=== PATIENT | female | born 1990 | race Caucasian/White ===

== ENCOUNTER 2024-01-03 12:30 | Emergency (ER) | payer BC, SELFPAY ==
--- NOTE | ~2024-01-03 | CT_ITS ---
EXAMINATION: CT BRAIN W/O DATE: 01/03/2024 14:34 INDICATION: Questionable new onset of seizure TECHNIQUE: Computed tomography (CT) of the head was performed without intravenous contrast. The dose- length product was 681.00 mGy-cm. Automated exposure control and iterative reconstruction technique w ere employed. COMPARISON: No prior studies for comparison. FINDINGS: Normal brain parenchymal volume for age. Normal powell-white differentiation. No acute intrac ranial hemorrhage, infarction, mass or mass effect. No ventriculomegaly or midline shift. Midline sagittal images demonstrate a normal corpus callosum, c raniovertebral junction and sella turcica. Basilar cisterns are patent. Paranasal sinuses and mastoids are pneumatized. No depressed skull fractures. IMPRESSION: 1. No acute intracranial abnormality. Reviewed, dictated and finalized at location B.
[2024-01-03 12:45] VITALS: BP 140/84; PULSE 87; RESP 16; TEMP 37; O2SAT 100
--- NOTE | 2024-01-03 13:38 | ECG_ITS ---
[facility] [address] Test Date: 2024-01-03 Pat Name: Sapphire Sims Department: Room: Gender: F Perforator: : 1990 Requested By: France Soriano Order Number: [id number] Perla MD: Steven Rasmussen M.D. Measurements Intervals [place] Rate: 65 P: 43 NC: 147 QRS: 47 QRSD: 84 T: 28 QT: 336 QTc: 350 Interpretive Statements SINUS RHYTHM WITH SINUS ARRHYTHMIA No previous ECG available for comparison Electronically Signed On 01-03-2024 14:28:26 CDT by Steven Rasmussen M.D.
--- NOTE | 2024-01-03 13:39 | ED.GENADULT ---
HPI - General Adult General Chief complaint: Fall Stated complaint: fall Time Seen by Provider: 01/03/24 13:37 Source: patient Mode of arrival: ambulatory Limitations: no limitations History of Present Illness HPI narrative: 33-year-old female who after concern for syncope versus seizure yesterday. Patient was on the toilet and just had a bowel movement when she had a warm painful sensation in her low abdomen like she might need to have a BM again and felt like she had might pass out. She put her head against the adjacent sink and then subsequently lost muscle tone and consciousness and woke up on the floor. She denies any diarrhea, needing to strain during the bowel movement, or bloody bowel movement. Denies any shortness of breath. No history of heart failure. Patient unsure how long she was unresponsive so believes it was less than 8 minutes given the timing of when her girlfriend had left the house versus return. She is concerned for possible seizure as her mom has a history of this of she reports that her mother's seizures are stress induced. Patient does report that she is recently going through a divorce which has been stressful. She believes she struck her head. She did have an episode of emesis afterwards and then felt nauseated but states the nausea resolved. Amenorrhea (since 2019) in the setting of Depo shots. no incontinence of bowel or bladder and denies any tongue trauma although she does state that she bit the inside bilateral cheeks the also does this at baseline in the setting of stress. When she awoke she was initially slightly confused, unclear postictal. No PMH anemia. Related Data Home Medications Medication Instructions Recorded Confirmed medroxyprogesterone 150 mg/mL 150 mg IM [id number] 09/15/21 intramuscular syringe (Depo-Provera) Allergies Allergy/AdvReac Type Severity Reaction Status Date / Time paroxetine Allergy Intermediate Confusion Verified 01/03/24 12:49 lavender (Lavandula Allergy Unknown Hives Verified 01/03/24 12:49 angustifolia) [facility] Past Medical History Medical History Chronic headaches Paralabral cyst of right shoulder Right shoulder pain Rotator cuff tear Family History Family History Unknown Hypertension Diabetes mellitus Heart failure Mother Seizure Social History Social History Social History: Currently going through a divorce (December 2023) Smoking status: Former smoker Smoking end date: 08/01/16 Alcohol intake: never Substance use: current Substance use type: marijuana Sexual Orientation (if Verbalized by the Patient): Lesbian, [place], or Homosexual Exam Narrative: GENERAL: Well-appearing, well-nourished, and in no acute distress. HEAD: Normocephalic, atraumatic. No periorbital ecchymosis. EYES: Non injected, non icteric ENT: Nares clear, no rhinorrhea or epistaxis. NECK: Supple. CHEST: Speaking in full sentences. No respiratory distress. HEART: Regular rate and rhythm. . ABDOMEN: Soft, nondistended. EXTREMITIES: Normal range of motion. No edema. SKIN: Warm, dry, no rash. NEURO: No focal deficits. Alert and oriented x3. No abnormal movements PSYCH: Normal mood and affect. Course Vital Signs Vital signs: Vital Signs Temperature 98.6 F 01/03/24 12:45 Pulse Rate 87 01/03/24 12:45 Respiratory Rate 16 01/03/24 12:45 Blood Pressure 140/84 01/03/24 12:45 Pulse Oximetry 100 01/03/24 12:45 Oxygen Delivery Room Air 01/03/24 12:45 Temperature 98.6 F 01/03/24 12:45 Pulse Rate 65 01/03/24 14:59 Respiratory Rate 16 01/03/24 12:45 Blood Pressure 136/73 01/03/24 14:59 Pulse Oximetry 100 01/03/24 12:45 Oxygen Delivery Room Air 01/03/24 12:45 Medical Decision Making MDM Narrative Medical decision
[2024-01-03 14:58] VITALS: BP 130/74; PULSE 75
[2024-01-03 14:59] VITALS: BP 126/68; BP 136/73; PULSE 61; PULSE 65
[2024-01-03 15:00] LABS: Basophils Absolute Auto 0.1 K/mm3 (0.0-0.1); Basophils Percent Auto 0.7 % (0.2-1.2); Eosinophils Absolute Auto 0.1 K/mm3 (0-0.3); Hematocrit 44.1 % (37.0-47.0); Hemoglobin 14.8 g/dL (12.0-15.0); Immature Granulocyte Absolute 0.02 K/mm3 (0.00-0.031); Immature Granulocyte Percent A 0.3 % (0-0.5); Lymphocytes Absolute Auto 2.03 K/mm3 (0.9-3.2); Lymphocytes Percent Auto 29.3 % (18.3-44.2); Mean Corpuscular HGB Conc 33.6 g/dl (32-36); Mean Corpuscular Hemoglobin 34.3 pg (26-34); Mean Corpuscular Volume 102.1 fl (80-100); Mean Platelet Volume 9.4 fl (7.4-10.4); Monocytes Absolute Auto 0.5 K/mm3 (0.1-0.6); Monocytes Percent Auto 6.5 % (2.6-8.5); Neutrophils Absolute Auto 4.3 K/mm3 (1.3-6.7); Neutrophils Percent Auto 62.2 % (45.5-73.1); Platelet Count Result 298 k/mm3 (150-375); Red Blood Count 4.32 M/mm3 (4.2-5.4); Red Cell Distribution Width 12.3 % (11.5-14.5); White Blood Count 6.9 K/mm3 (4.5-10.0)
[2024-01-03 15:10] LABS: Alanine Aminotransferase 13 U/L (6-35); Albumin Level 5.1 g/dL (3.5-5.1); Alkaline Phosphatase 54 U/L (38-126); Anion Gap 8 mmol/L (4-12); Aspartate Amino Transferase 19 U/L (14-36); Bilirubin,Total 0.5 mg/dL (0.2-1.3); Blood Urea Nitrogen 10 mg/dL (7-17); Calcium 9.3 mg/dL (8.4-10.2); Carbon Dioxide 25 mmol/L (22-30); Chloride 108 mmol/L (98-107); Estimated CRCL calculation 100 ml/min; Estimated Glomerular Filt Rate > 60; Glucose 101 mg/dL (65-110); Potassium 4.1 mmol/L (3.4-5.0); Sodium 141 mmol/L (137-145)
[2024-01-03 15:15] LABS: Appearance Urine Cloudy (Clear); Bacteria Urine 4+ /hpf; Bilirubin Urine Negative (Negative); Blood Urine Negative (Negative); Color Urine Yellow (Yellow); Glucose Urine UA Negative (Negative); Ketones Urine Negative (Negative); Leukocyte Esterase Ur 1+ LEU/UL (Negative); Need Manual Microscopic Reviewed; Nitrate Urine Negative (Negative); Non Pathogenic Casts 0-2; Protein Urine Negative (Negative); Squamous Epithelial Cell Urine Moderate /hpf (Few)
[2024-01-03 15:16] LABS: Add Urine Microscopic? YES
[2024-01-03 15:37] LABS: Amphetamine Screen Urine Negative (Negative); Barbiturate Screen Urine Negative (Negative); Benzodiazepines Screen Urine Negative (Negative); Cannabinoid Screen Urine Positive (Negative); Cocaine Screen Urine Negative (Negative); Methadone Screen Urine Negative (Negative); Opiate Screen Urine Negative (Negative); Phencyclidine Screen Urine Negative (Negative)
[2024-01-03] MEDS: SULFAMETHOXAZOLE/TRIMETHOPRIM 800/160 MG DS TABLET 1 TAB PO (15:52)
== END 2024-01-03 15:55 | disposition home or self-care (01) ==
PROVIDERS: Emergency Provider Student in an Organized Health Care Education/Training Program; PCP Physician Assistant
DX: N39.0 Urinary tract infection, site not specified (principal); R55 Syncope and collapse; F12.90 Cannabis use, unspecified, uncomplicated; Z87.891 Personal history of nicotine dependence
CPT/HCPCS: 36415; 70450; 80053; 80307; 81001; 81025; 85025; 87086; 93005; 99284; A9270

== ENCOUNTER 2025-01-23 23:57 | Emergency (ER) | payer SELFPAY ==
--- NOTE | ~2025-01-23 | CT_ITS ---
CT Facial Bones Clinical Indication: Trauma Technique: Contiguous axial scans were obtained through the facial bones followed by coronal and sagi ttal reconstructions. Dose reduction technique was used on this scan by utilizing automated exposure control and iterative reconstruction technique. The dose-length product (DLP) was 410.28 mGy-cm. Findings: No fractures are identified. The visualized paranasal sinuses are clear. Intraorbital soft tissues appear normal. Impression: No fracture identified. Reviewed, dictated and finalized at location . Impression: No fracture identified.
--- NOTE | ~2025-01-23 | CT_ITS ---
Non-contrast Head CT History: Trauma COMPARISON: 01/03/2024 Technique: Axial non-contrast imaging of the brain was performed. Dose reduction technique was used on this scan by utilizing automated exposure control and iterative reconstruction technique. The dose -length product (DLP) was 605.33 mGy-cm. Findings: There is no evidence of intracranial hemorrhage, mass lesion, or acute infarct. Brain par enchyma appears normal. The ventricles and subarachnoid spaces are normal in size. The calvarium ap pears normal. The visualized paranasal sinuses and mastoid air cells are clear. Impression: No significant abnormality seen. Reviewed, dictated and finalized at [facility]. Impression: No significant abnormality seen.
--- NOTE | ~2025-01-23 | XR_ITS ---
Portable chest x-ray Comparison: None Clinical History: Syncope Findings: Lungs are clear, without focal consolidation or pleural effusion. Cardiomediastinal silho uette is unremarkable. Bones and soft tissues are unremarkable. Impression: Normal chest. Reviewed, dictated and finalized at location M. Impression: Normal chest.
[2025-01-24] VITALS (7 sets, daily range): BP systolic 103–134; BP diastolic 51–79; PULSE 59–80; RESP 12–20; TEMP 36.7; O2SAT 98–100
--- NOTE | 2025-01-24 00:52 | ECG_ITS ---
Test Date: 2025-01-24 01:07:54 Measurements Intervals [place] Rate: 58 P: -1 WA: 159 QRS: 47 QRSD: 84 T: 35 QT: 366 QTc: 360 Interpretive Statements SINUS BRADYCARDIA CONSIDER RIGHT VENTRICULAR CONDUCTION DELAY BORDERLINE ECG Compared to ECG 01/03/2024 13:48:24 HEART RATE HAS DECREASED Electronically Signed On 01-24-2025 06:58:20 CDT by Xavi Jones D.O.
--- NOTE | 2025-01-24 01:07 | ED_ITS ---
HPI - General Adult General Chief complaint: Syncope Stated complaint: syncope Time Seen by Provider: 01/24/25 00:51 History of Present Illness HPI narrative: 34-year-old female presenting to the emergency department for evaluation for vasovagal episode while taking a shower. Patient states she was in pain because she was trying to remove her Tegaderm from a recent tattoo and she felt lightheaded. Patient said on the edge of the tub but ultimately did lose consciousness and fell and landed between the toe of and the cabinet. Did strike her face on the cabinet. Patient was able to call a friend for help and patient was brought to the emergency department for evaluation. Related Data Home Medications ?Medication ?Instructions ?Recorded ?Confirmed ?Last Taken ?Type medroxyprogesterone 150 mg/mL 150 mg IM [id number] 09/15/21 Unknown History intramuscular syringe (Depo-Provera) Allergies Allergy/AdvReac Type Severity Reaction Status Date / Time paroxetine Allergy Intermediate Confusion Verified 01/24/25 00:10 lavender (Lavandula Allergy Unknown Hives Verified 01/24/25 00:10 angustifolia) Review of Systems 2 Review of Systems: All systems reviewed & are unremarkable except as noted in HPI and below PMFSH Past Medical History Medical History Chronic headaches Paralabral cyst of right shoulder Right shoulder pain Rotator cuff tear Family History Family History Unknown Hypertension Diabetes mellitus Heart failure Mother Seizure Social History Social History Social History: Currently going through a divorce (December 2023) Smoking status: Former smoker Smoking end date: 08/01/16 Alcohol intake: never Substance use: current Substance use type: marijuana Sexual Orientation (if Verbalized by the Patient): Lesbian, [place], or Homosexual Exam 2 Narrative: APPEARANCE: Well appearing, no pain, no distress, well-nourished. HEAD: normocephalic, right-sided facial contusion. EYES: PERRLA/EOMI, conjunctivae clear. NOSE: Normal no drainage EARS:TMS clear with good light reflex. THROAT: Pharynx clear, no exudate. NECK: Supple. No adenopathy, no masses. RESPIRATORY: Airway patent, respirations nonlabored. Clear to auscultation bilaterally, no rales, rhonchi, wheezing. CARDIOVASCULAR: Regular rate and rhythm without murmurs rubs or gallops. ABDOMINAL: Soft, nontender, nondistended, normal bowel sounds MUSCULOSKELETAL: Moves all extremities. Strength/ROM intact, No edema, No calf tenderness. NEURO: Alert. Cranial nerves II through XII intact. Good gait. Good coordination SKIN: Warm, dry. Normal Color Course Vital Signs Vital signs: Vital Signs Temperature 98.0 F 01/24/25 00:07 Pulse Rate 68 01/24/25 00:07 Respiratory Rate 18 01/24/25 00:07 Blood Pressure 113/66 01/24/25 00:07 Pulse Oximetry 100 01/24/25 00:07 Oxygen Delivery Room Air 01/24/25 00:07 Temperature 98.0 F 01/24/25 00:07 Pulse Rate 59 L 01/24/25 04:02 Respiratory Rate 16 01/24/25 04:02 Blood Pressure 103/69 01/24/25 04:02 Pulse Oximetry 100 01/24/25 04:02 Oxygen Delivery Room Air 01/24/25 00:07 Medical Decision Making MDM Narrative Medical decision making narrative: 34-year-old female present to the emergency department for evaluation for vasovagal syncope. Patient is currently afebrile but does have a leukocytosis of 14.9 hemoglobin of 13.0. INR is 0.9 with no significant acute abnormalities on her CMP. Patient states she was in a hot shower and was and pain as she was removing her Tegaderm off of her tattoo. Chest x-ray shows no acute cardiopulmonary abnormality head and facial CT were negative. Patient had negative orthostatic vitals the emergency department. Patient states she does feel improved. Patient was updated on the results of her workup was discharged home. All questions concerns were addressed. Differential Diagnosis Differential Diagnosis: Subdural hematoma, subarachnoid hemorrhage, facial fracture, cardiac arrhythmia, vasovagal syncope Vital Signs Vital Signs: Vital Signs Temperature 98.0 F 01/24/25 00:07 Pulse Rate 68 01/24/25 00:07 Respiratory Rate 18 01/24/25 00:07 Blood Pressure 113/66 01/24/25 00:07 Pulse Oximetry 100 01/24/25 00:07 Oxygen Delivery Room Air 01/24/25 00:07 Temperature 98.0 F 01/24/25 00:07 Pulse Rate 59 L 01/24/25 04:02 Respiratory Rate 16 01/24/25 04:02 Blood Pressure 103/69 01/24/25 04:02 Pulse Oximetry 100 01/24/25 04:02 Oxygen Delivery Room Air 01/24/25 00:07 Lab Data Lab results reviewed: Yes I reviewed the patient's lab results. 01/24/25 01:30 01/24/25 01:30 Labs: Lab Results 01/24/25 01/24/25 01/24/25 Range/Units 01:27 01:30 01:31 WBC 14.9 H (4.5-10.0) K/mm3 RBC 3.87 L (4.2-5.4) M/mm3 Hgb 13.0 (12.0-15.0) g/dL Hct 40.0 (37.0-47.0) % MCV 103.4 H (80-100) fl MCH 33.6 (26-34) pg MCHC 32.5 (32-36) g/dl RDW 12.0 (11.5-14.5) % Plt Count 272 (150-375) k/mm3 MPV 9.4 (7.4-10.4) fl Immature Gran % (Auto) 0.4 (0-0.5) % Neut % (Auto) 82.3 H (45.5-73.1) % Lymph % (Auto) 10.4 L (18.3-44.2) % [place] % (Auto) 5.9 (2.6-8.5) % Eos % (Auto) 0.5 (0-4.4) % Baso % (Auto) 0.5 (0.2-1.2) % Lymph # (Auto) 1.54 (0.9-3.2) K/mm3 [place] # (Auto) 0.9 H (0.1-0.6) K/mm3 Eos # (Auto) 0.1 (0-0.3) K/mm3 Baso # (Auto) 0.1 (0.0-0.1) K/mm3 Abs Immat Gran (auto) 0.06 H (0.00-0.031) K/mm3 Absolute Neuts (auto) 12.2 H (1.3-6.7) K/mm3 Absolute Nucleated RBC 0.000 (0.0-0.012) K/mm3 Nucleated RBC % 0.0 (0.0-0.2) % PT 12.3 (11.1-14.7) Seconds INR 0.9 APTT 24.6 (22.3-36.8) Seconds Sodium 140 (137-145) mmol/L Potassium 4.2 (3.4-5.0) mmol/L Chloride 105 (98-107) mmol/L Carbon Dioxide 25 (22-30) mmol/L Anion Gap 10 (4-12) mmol/L BUN 9 (7-17) mg/dL Creatinine 0.66 L (0.7-1.0) mg/dL Estim Creat Clear Calc 91 ml/min Estimated GFR > 60 (59 - ) Glucose 104 (65-110) mg/dL POC Capillary Glucose 107 H (65-105) mg/dl Calcium 9.6 (8.4-10.2) mg/dL Total Bilirubin 0.3 (0.2-1.3) mg/dL AST 22 (14-36) U/L ALT 14 (6-35) U/L Alkaline Phosphatase 50 (38-126) U/L Total Protein 8.1 (6.3-8.2) g/dL Albumin 5.0 (3.5-5.1) g/dL POC Urine HCG, Qual Negative (Negative) Imaging Data Radiologist's impression: Overnight read CT facial impression: No acute osseous pathology, intraorbital contents are within normal limits. Discharge Plan Discharge Clinical Impression: Syncope and collapse, Facial injury Patient Disposition: Home Condition: Stable Instructions: Antibiotic Form, Syncope (ED) Additional Instructions: There were no acute abnormalities on your brain or face CT. Drink plenty of fluids. Have close follow-up with your primary care physician. If you have any worsening symptoms and please call or return to the emergency department. Patient Language: Tajik Prescriptions: No Action medroxyprogesterone [Depo-Provera] 150 mg/mL syringe 150 mg IM [id number] sulfamethoxazole-trimethoprim [Bactrim DS] 800-160 mg tablet 1 tablet PO Q12H 4 Days Qty: 8 0RF Follow-up/Referrals: Adrienne,GUY Pires [Primary Care Provider] -
[2025-01-24 01:33] LABS: Glucose Point of Care 107 mg/dl (65-105)
[2025-01-24] MEDS: LACTATED RINGERS 1,000 ML 999 ML IV CONT (01:33)
[2025-01-24 01:35] LABS: BEDSIDEPREGUCG Negative (Negative)
[2025-01-24 01:39] LABS: Basophils Absolute Auto 0.1 K/mm3 (0.0-0.1); Basophils Percent Auto 0.5 % (0.2-1.2); Eosinophils Absolute Auto 0.1 K/mm3 (0-0.3); Eosinophils Percent Auto 0.5 % (0-4.4); Immature Granulocyte Absolute 0.06 K/mm3 (0.00-0.031); Immature Granulocyte Percent A 0.4 % (0-0.5); Lymphocytes Absolute Auto 1.54 K/mm3 (0.9-3.2); Lymphocytes Percent Auto 10.4 % (18.3-44.2); Mean Corpuscular HGB Conc 32.5 g/dl (32-36); Mean Corpuscular Hemoglobin 33.6 pg (26-34); Mean Corpuscular Volume 103.4 fl (80-100); Mean Platelet Volume 9.4 fl (7.4-10.4); Monocytes Absolute Auto 0.9 K/mm3 (0.1-0.6); Monocytes Percent Auto 5.9 % (2.6-8.5); Neutrophils Absolute Auto 12.2 K/mm3 (1.3-6.7); Neutrophils Percent Auto 82.3 % (45.5-73.1); Platelet Count Result 272 k/mm3 (150-375); Red Blood Count 3.87 M/mm3 (4.2-5.4); White Blood Count 14.9 K/mm3 (4.5-10.0)
[2025-01-24 01:47] LABS: Alanine Aminotransferase 14 U/L (6-35); Alkaline Phosphatase 50 U/L (38-126); Anion Gap 10 mmol/L (4-12); Aspartate Amino Transferase 22 U/L (14-36); Bilirubin,Total 0.3 mg/dL (0.2-1.3); Blood Urea Nitrogen 9 mg/dL (7-17); Calcium 9.6 mg/dL (8.4-10.2); Carbon Dioxide 25 mmol/L (22-30); Chloride 105 mmol/L (98-107); Estimated CRCL calculation 91 ml/min; Estimated Glomerular Filt Rate > 60; Glucose 104 mg/dL (65-110); Potassium 4.2 mmol/L (3.4-5.0); Sodium 140 mmol/L (137-145); Total Protein 8.1 g/dL (6.3-8.2)
[2025-01-24 01:55] LABS: INR 0.9; Partial Thromboplastin Time 24.6 Seconds (22.3-36.8); Prothrombin Time 12.3 Seconds (11.1-14.7)
== END 2025-01-24 04:23 | disposition home or self-care (01) ==
PROVIDERS: Emergency Provider Emergency Medicine; PCP Physician Assistant
DX: R55 Syncope and collapse (principal); S00.83XA Contusion of other part of head, initial encounter; Z87.891 Personal history of nicotine dependence; W17.89XA Other fall from one level to another, initial encounter
CPT/HCPCS: 36415; 70450; 70486; 71045; 80053; 81025; 82948; 85025; 85610; 85730; 93005; 96360; 99284; J7120